=== PATIENT | male | born 1970 | race Caucasian/White ===

== ENCOUNTER → 2017-01-31 | Outpatient (CLI) | payer BC ==
[~2017-01-31] VITALS: Ht 188 cm; Wt 156.6 kg
[~2017-01-31] MED LIST: MULT-506 PO
[2017-01-31 14:59] VITALS: BP 139/85; PULSE 77; Ht 188 cm; Wt 156.6 kg
== END | disposition home or self-care (01) ==
LOC: C.NEUR 13:20
PROVIDERS: ATTEND Physician Assistant
DX: G47.33 Obstructive sleep apnea (adult) (pediatric) (principal)

== ENCOUNTER → 2017-10-21 | Outpatient (CLI) | payer BC ==
--- NOTE | 2017-10-21 17:20 | EXERCISE STRESS ECHO ---
*NOTICE TO RECEIVING DEMOCRAT AGENCY This information is strictly Confidential and protected under [place] law. [place] law prohibits you from making any further disclosure of this information unless further disclosure is expressly permitted by the written consent of the person to whom it pertains or is authorized by law. A general authorization for the release of medical or other information is not sufficient for this purpose. Hospital accepts no responsibility if the information is made available to any other person, INCLUDING THE PATIENT. Interpretation Summary * Name: JACKY TORRES Study Date: 10/21/2017 09:17 AM BP: 140/100 mmHg * Patient Location: [facility] HR: 62 * : 1970 (M/d/yyyy) Gender: Male Height: 74 in * Age: 47 yrs Ethnicity: CA Weight: 358 lb * Ordering Physician: Sj Meraz * Referring Physician: Sj Meraz * Performed By: Rowan Fisher RDCS * * Reason For Study: SOB * BSA: 2.8 m2 * -- Conclusions -- * Stress echo: * 1. Nondiagnostic exercise stress echo as target heart rate was not attained. There were no obvious ischemic changes at 75% MPHR. * 2. Nondiagnostic exercise ECG as target heart rate was not attained. * 3. Hypertensive response to exercise. * 4. No chest pain reported. * 5. Exercise terminated secondary to dyspnea and knee pain. * 6. No arrhythmia. * 7. Technically difficult study, enhanced with IV Definity. * Bicuspid aortic valve without significant stenosis. * Echo: * 1. Mildly dilated left ventricle with normal systolic function. EF 55-60%. No regional wall motion abnormalities. Mild concentric left ventricular hypertrophy. No significant diastolic dysfunction. 2. Bicuspid aortic valve with mild regurgitation. * 3. Technically difficult study. Procedure Details * A contrast injection of Definity was performed to improve assessment of LV function. * Contrast was injected into an intravenous site in the left arm. * One vial of Definity ultrasound contrast was diluted in normal saline to a total volume of 10 ml. A total of '2' ml of solution was administered during imaging. * Lot # [id number] of Definity utilized for procedure. * Expiration date OCT 17. * The attending nurse who injected the contrast agent was ABBI WAN RN. Left Ventricle * The left ventricle is mildly dilated. * There is mild concentric left ventricular hypertrophy. * Ejection Fraction = 55-60%. * Resting wall motion: Normal. Stress wall motion: Appropriate increase in Left ventricular systolic function and decrease in cavity size. No stress induced segmental wall motion abnormalities. * The left ventricular ejection fraction increases normally with stress. The left ventricular end-systolic cavity size reduces post-stress (normal response). The left ventricular wall motion with stress is normal. * No regional wall motion abnormalities noted. Right Ventricle * The right ventricle is not well visualized. * The right ventricular systolic function is normal as assessed by tricuspid annular plane systolic excursion (TAPSE) (normal >1.5 cm). Atria * The left atrial size is normal. * Right atrial size is normal. * There is no evidence of atrial septal defect, but resolution does not allow assessment for a patent foramen ovale. Mitral Valve * The mitral valve leaflets appear normal. There is no evidence of stenosis, fluttering, or prolapse. * There is no mitral valve stenosis. * Significant mitral regurgitation is absent. Tricuspid Valve * The tricuspid valve is not well visualized, but is grossly normal. * There is no tricuspid stenosis. * There is trace tricuspid regurgitation. Aortic Valve * Bicuspid aortic valve without significant stenosis. * Mild aortic regurgitation. Pulmonic Valve * The pulmonary valve is inadequately visualized, but the Doppler data is adequate for interpretation. * Trace pulmonic valvular regurgitation. Great Vessels * The aortic root is normal size. * Aortic arch of normal dimension. Pericardium * There is no pericardial effusion. Stress Parameters * NSR at 69 bpm. * No arrhythmia were noted with stress. * Stress ECG: No ST changes. No arrhythmias. * The stress portion of this study was personally supervised by the undersigned interpreting physician. * Rest heart rate was '62' BPM. * Rest blood pressure was '140/100' * Maximum heart rate achieved was 130 bpm. * Maximum heart rate was 75 % of maximum age-predicted heart rate. * Maximum blood pressure was '211/83' * Total exercise time was '6:00' * Maximum exercise MET level achieved was '7' METS * Maximum treadmill speed was '2.40' miles per hour. * Maximum treadmill elevation was '12'% grade. * Exercise was terminated due to 'dyspnea and knee pain' * Exercise-induced hypertension. MMode 2D Measurements and Calculations IVSd 1.3 cm IVSs 2.1 cm LVIDd 5.4 cm LVIDs 3.9 cm LVPWd 1.2 cm LVPWs 1.7 cm IVS/LVPW 1.0 FS 29.0 % EDV(Teich) 144.0 ml ESV(Teich) 64.6 ml EF(Teich) 55.1 % EDV(cubed) 161.4 ml ESV(cubed) 57.9 ml EF(cubed) 64.1 % % IVS thick 63.6 % % LVPW thick 39.5 % LV mass(C)d 282.2 grams LV mass(C)dI 101.4 grams/m\S\2 LV mass(C)s 324.8 grams LV mass(C)sI 116.7 grams/m\S\2 SV(Teich) 79.4 ml SI(Teich) 28.5 ml/m\S\2 SV(cubed) 103.5 ml SI(cubed) 37.2 ml/m\S\2 Ao root diam 3.7 cm Ao root area 10.6 cm\S\2 LA dimension 3.6 cm LA/Ao 0.99 LVOT diam 2.6 cm LVOT area 5.5 cm\S\2 Doppler Measurements and Calculations MV E max elder 95.4 cm/sec MV A max elder 50.6 cm/sec MV E/A 1.9 MV dec time 0.21 sec Ao V2 max 158.0 cm/sec Ao max PG 10.0 mmHg Ao max PG (full) 8.0 mmHg Ao V2 mean 99.3 cm/sec Ao mean PG 4.7 mmHg Ao mean PG (full) 3.5 mmHg Ao V2 VTI 31.7 cm JIMMY(I,A) 2.8 cm\S\2 JIMMY(I,D) 2.8 cm\S\2 JIMMY(V,A) 2.4 cm\S\2 JIMMY(V,D) 2.4 cm\S\2 LV V1 max PG 2.0 mmHg LV V1 mean PG 1.2 mmHg LV V1 max 70.0 cm/sec LV V1 mean 52.1 cm/sec LV V1 VTI 16.2 cm SV(Ao) 336.0 ml SI(Ao) 120.7 ml/m\S\2 SV(LVOT) 88.1 ml SI(LVOT) 31.7 ml/m\S\2 TR max elder 207.9 cm/sec
== END | disposition home or self-care (01) ==
LOC: C.CPL 09:03
PROVIDERS: ATTEND Internal Medicine
DX: R07.9 Chest pain, unspecified (principal); R94.31 Abnormal electrocardiogram [ECG] [EKG]; I35.1 Nonrheumatic aortic (valve) insufficiency

== ENCOUNTER → 2017-10-21 | Outpatient (CLI) | payer BC ==
[2017-10-21 15:28] LABS: BASO % 0.6 %; BASO ABS # 0.05 K/uL (0-0.2); EOS % 3.5 %; EOS ABS # 0.28 K/uL (0-0.5); HEMATOCRIT 42.2 % (42-52); HEMOGLOBIN 15.3 g/dL (14.0-18.0); IG# 0.02 K/uL (0.00-0.02); LYMPH % 24.4 %; LYMPH ABS # 1.95 K/uL (1.2-3.4); MEAN CELL VOLUME 83.6 fL (80-100); MEAN CORPUSCULAR HEMOGLOBIN 30.3 pg (25-34); MEAN CORPUSCULAR HGB CONC 36.3 g/dl (32-36); MEAN PLATELET VOLUME 9.6 fL (7.4-10.4); MONO ABS # 0.64 K/uL (0.11-0.59); NEUT % 63.2 %; NEUT ABS # 5.04 K/uL (1.4-6.5); PLATELET COUNT 217 K/uL (130-400); RED CELL DISTRIBUTION WIDTH CV 13.3 % (11.5-14.5); RED CELL DISTRIBUTION WIDTH SD 39.4 fL (36.4-46.3); WHITE BLOOD COUNT 7.98 K/uL (4.8-10.8)
[2017-10-21 15:45] LABS: ALBUMIN 3.8 gm/dl (3.4-5.0); ALT/SGPT 42 U/L (12-78); BLOOD UREA NITROGEN 12 mg/dl (7-18); CALCIUM 9.1 mg/dl (8.5-10.1); CARBON DIOXIDE 23 mmol/L (21-32); CREATININE 0.73 mg/dl (0.60-1.40); GLUCOSE 102 mg/dl (70-99); SODIUM 139 mmol/L (136-145)
[2017-10-21 15:48] LABS: ALKALINE PHOSPHATASE 88 U/L (45-117); AST/SGOT 24 U/L (15-37); TOTAL PROTEIN 7.2 gm/dl (6.4-8.2)
[2017-10-22 07:33] LABS: HEMOGLOBIN A1C 5.6 % (4.5-5.6)
== END | disposition home or self-care (01) ==
LOC: C.LABSPEC 14:55
PROVIDERS: ATTEND Internal Medicine
DX: R73.9 Hyperglycemia, unspecified (principal); R78.5 Finding of other psychotropic drug in blood; R06.00 Dyspnea, unspecified

== ENCOUNTER → 2017-10-29 | Outpatient (CLI) | payer BC ==
[~2017-10-29] MED LIST changes: +ASPCH81X PO; +METO25TA56 PO; +OPTIRAY 320 IV PRN
--- NOTE | 2017-10-29 13:01 | DIAGNOSTIC IMAGING REPORT ---
CT CHEST ANGIO WITH CONTRAST CT DOSE: 1052.42 mGy.cm CLINICAL HISTORY: Bicuspid aortic valve. Chest pain. Shortness of breath on exertion. TECHNIQUE: CT angiography of the chest was performed in a dynamic helical fashion during intravenous administration 120 cc of Optiray 320. MIP imaging was obtained. A dose lowering technique was utilized adhering to the principles of ALARA. COMPARISON STUDY: None. FINDINGS: The thyroid is unremarkable in appearance. The heart is at the upper limits of normal in size. No pulmonary artery filling defects are visualized There are no pathologically enlarged axillary, mediastinal, or hilar lymph nodes. There are mild dependent atelectatic changes. There are no pleural effusions. There is no focal pulmonary consolidation. There is a 4 mm left lower lobe pulmonary nodule as visualized in image #[id number]. There is no evidence of thoracic aortic dilatation. There are notable flaps to indicate aortic dissection. IMPRESSION: 1. No evidence of thoracic aortic aneurysm or dissection 2. 4 mm left lower lobe pulmonary nodule. In a high risk patient, a 12 month follow-up is optional Please refer to below summary of Fleischner criteria recommendations for follow-up of incidental CT nodules (Dilip Waterman, Guidelines for management of small pulmonary nodules detected on CT scans: A statement from the Fleischner Society, Radiology 237: [phone].) SOLID NODULES Solitary nodule size: <6 mm * low risk patients: no follow-up needed * high risk patients: optional CT at 12 months Solitary nodule size: 6-8 mm * low risk patients: follow-up at 6-12 months, then consider further follow-up at 18-24 months * high risk patients: initial follow-up CT at 6-12 months and then at 18-24 months if no change Solitary nodule size: >8 mm * either low or high risk patients - consider follow-up CT at 3 months, and/or CT-PET, and/or biopsy Multiple nodules size: <6 mm * low risk patients: no routine follow-up * high risk patients: optional CT at 12 months Multiple nodules size: 6-8 mm * low risk patients: follow-up at 3-6 months, then consider further follow-up at 18-24 months * high risk patients: follow-up at 3-6 months, then at 18-24 months if no change Multiple nodules size: >8 mm * low risk patients: follow-up at 3-6 months, then consider further follow-up at 18-24 months * high risk patients: follow-up at 3-6 months, then at 18-24 months if no change Note: newly detected indeterminate nodule in persons 35 years of age or older. * low risk patients: minimal or absent history of smoking and/or other known risk factors * high risk patients: history of smoking or of other known risk factors (e.g. first degree relative with lung cancer, or exposure to asbestos, radon, uranium) * if a nodule up to 8 mm is partly solid or is ground glass further follow-up is required after 24 months to exclude possible slow growing adenocarcinoma (KATHLEEN) SUBSOLID NODULES Solitary pure ground-glass nodule * nodule size <6 mm - no CT follow-up required * nodule size >=6 mm - follow-up CT at 6-12 months, then every 2 years until 5 years Solitary part-solid nodule * nodule size <6 mm - no CT follow-up required * nodule size >=6 mm - follow-up CT at 3-6 months. If unchanged, and solid component remains <6 mm, then annual follow-up for 5 years Multiple subsolid nodules * nodule size <6 mm - follow-up CT at 3-6 months, consider further follow-up at 2 and 4 years if stable * nodule size >=6 mm - follow-up CT at 3-6 months, subsequent management based on the most suspicious nodule(s) Electronically signed by: Emanuel Coombs M.D. 10/29/2017 1:00 PM Dictated Date/Time: 10/29/2017 12:56 PM
== END | disposition home or self-care (01) ==
LOC: C.CTS 12:13
PROVIDERS: ATTEND Internal Medicine Cardiovascular Disease
DX: Q23.1 Congenital insufficiency of aortic valve (principal); R06.02 Shortness of breath; R07.89 Other chest pain

== ENCOUNTER → 2017-11-03 | Outpatient (CLI) | payer BC ==
[~2017-11-03] MED LIST changes: -OPTIRAY 320 IV PRN
[2017-11-03 14:02] LABS: BLOOD UREA NITROGEN 14 mg/dl (7-18); CARBON DIOXIDE 24 mmol/L (21-32); CREATININE 0.83 mg/dl (0.60-1.40); GLUCOSE 125 mg/dl (70-99); SODIUM 139 mmol/L (136-145)
== END | disposition home or self-care (01) ==
LOC: C.LAB1850 10:45
PROVIDERS: ATTEND Internal Medicine Cardiovascular Disease
DX: Q23.1 Congenital insufficiency of aortic valve (principal); R06.02 Shortness of breath; R07.89 Other chest pain

== ENCOUNTER → 2017-11-06 | Day surgery (SDC) | payer BC ==
[~2017-11-06] VITALS: Ht 188 cm; Wt 159.0 kg
[~2017-11-06] MED LIST changes: +ACETAMINOPHEN 325 MG TAB PO PRN; +FENTANYL CITRATE INJ 50 MCG/1 ML 2 ML VIAL ONE; +HEPARIN SOD (PORCINE) 1000 UNIT/ML 10 ML VIAL ONE; +MIDAZOLAM HCL 1 MG/ML 2ML VIAL ONE; +NITROGLYCERIN/D5W 100MCG/ML 20ML SYR ONE; +NiCARDipine HCL INJ 2.5 MG/ML 10 ML AMP ONE; +ONDANSETRON INJ 2 MG/ML 2 ML VIAL IV PRN; +SODIUM CHLORIDE 0.9% 1000ML 1,000 ML IV SCH; +SODIUM CHLORIDE 0.9% 1000ML 250 ML IV PRN
[2017-11-06 08:40] VITALS: BP 151/88; PULSE 63; TEMP 36.4; O2SAT 95; Ht 188 cm; Wt 159.0 kg
--- NOTE | 2017-11-06 09:53 | History & Physical Bridge Note ---
H&P Re-Evaluation Bridge Note: I have examined the patient, reviewed the History & Physical and in the interval since the performance of the History & Physical I have noted the following changes of clinical significance: No changes noted
--- NOTE | 2017-11-06 09:56 | Pre Sedation Assessment ---
Pre Sedation Assessment General Date of Sedation: Nov 06, 2017. Vital Signs Past 12 Hours Date Time Temp Pulse Resp B/P (MAP) Pulse Ox O2 Delivery O2 Flow Rate FiO2 11/06/17 08:40 36.4 63 16 151/88 (109) 95 Room Air Review Cardiovascular: regular rate, rhythm Lungs: lungs clear Pre-Sedation Airway Assessment Smoking Status: Never Smoker Hx of Sleep Apnea: Yes Short Thick Neck: Yes Oral Cavity: WNL Mallampati Classification: Class III ASA Classification: Class III NPO Status Date of Last Intake of Solids: Nov 05, 2017 Time of Last Intake of Solids: 18:00 Procedure Planning Contraindications for Sedation: None Current Medications Reviewed: Yes Notes The planned sedation has been discussed with the patient. Informed Consent was obtained. I have identified the patient, determined the appropriateness of sedation and have assessed the patient immediately prior to the procedure. All medicine(s) and interventions are by my order.
--- NOTE | 2017-11-06 10:42 | Cardiac Catheterization ---
Procedure Note Procedure Date Nov 06, 2017. Pre-Procedure Diagnosis Cardiothoracic Symptom (Dyspnea on exertion and atypical chest pain. Nondiagnostic stress echo.) AUC Score 7 Post-Procedure Diagnosis Normal Coronary Arteries, Normal Intracardiac Pressures Procedure(s) Performed Coronary Angiography, Left Heart Cath Pediatric Cardiologist Dr. Merritt Matching Machine Operator(s) Judith Estimated Blood Loss < 20 ml Medication(s) Fentanyl, Heparin, Nicardipine, Versed, Lidocaine 1% Summary of Findings Coronary angiography: 1. Left main coronary artery: The LMCA is large in caliber. No CAD. 2. Left anterior descending: The LAD is a large caliber vessel that extends to the apex. There is a small caliber D1 and a large caliber D2. No significant CAD within the LAD system. 3. Circumflex: Circumflex is a large caliber vessel which gives rise to a very large high OM1 with lateral branch, and a medium caliber OM2. No CAD noted within the circumflex system. 4. Right coronary artery: The RCA is a large and dominant vessel. It gives rise to a large PL branch and large PDA. No CAD noted within the RCA system. Left heart catheterization: 1. Left ventriculography was not performed as patient had recent echocardiogram. 2. No significant aortic stenosis. Peak to peak transvalvular gradient 0mmHg. 3. Normal LVEDP; 8 mmHg. Sedation start time: 10:04 a.m. Sedation end time: 10:25 a.m. Procedural details: 1. Coronary angiography and left heart catheterization was performed via the right radial artery without known complication. JL 3.5 and JR4 diagnostic catheters were used. Impression: 1. No CAD. 2. No significant aortic stenosis. 3. Normal LVEDP. Plan: 1. Continue to follow-up for surveillance regarding bicuspid aortic valve. Hemodynamics Rest Ao: 104/63 Final Ao: 101/63 LV: 106/0/8 Recommendations Medical therapy and/or Counseling Specimens Radiation Exposure (mGy) 1687 mGy. Fluoro time 5.9 min Contrast (mls) 70 Procedural Complication(s) None Disposition Nutritional Services Host Holding/Recovery ACC Data Cardiac Status Clinical evaluation leading to the procedure CAD Presntation: No Sxs, no angina (atypical chest pain and dyspnea on exertion ) Anginal Classification: CCS III Heart Failure: No Cardiogenic Shock w/in 24Hrs: No Cardiac Arrest w/in 24Hrs: No Imaging studies past 6 months: No Stress studies past 6 months: Yes Standard Exercise Stress Test: Yes - Indeterminant (TARGET HR NOT ATTAINED) Stress Echocardiogram: Yes - Indeterminant (NONDIAGNOSTIC) Stress Testing w/SPECT MPI: No Cardiac CTA: No Coronary Anatomy Dominant: Right Left Main (% Stenosis): Normal LAD (% Stenosis): Normal D1 (% Stenosis): Normal D2 (% Stenosis): Normal Circumflex (% Stenosis): Normal OM1 (% Stenosis): Normal OM2 (% Stenosis): Normal RCA (% Stenosis): Normal R PDA (% Stenosis): Normal R PL1 (% Stenosis): Normal Left Ventricular Angiography EF (%): n/a Diagnostic Physician's Name: Zac Merritt MD Status: Elective Closure Device Percutaneous Entry Location: Radial Closure Device: Radial Band Recommendations: Medical therapy and/or Counseling
--- NOTE | 2017-11-06 10:58 | Discharge Instructions ---
Discharge Instructions Date of Service Nov 06, 2017. Visit Reason for Visit: Shortness of breath and atypical chest pain. Here for heart catheterization. Discharge Discharge Diagnosis / Problem: No coronary artery disease Discharge Goals Goal(s): Diagnostic testing Medications Restart Stopped Medication(s): resume usual medications Activity Recommendations Activity Limitations: per Instructions/Follow-up section Anesthesia . Post Anesthesia Instructions: If you have had General Anesthesia or IV Sedation: * Do not drive today. * Resume driving when surgeon permits. * Do not make important decisions or sign legal documents today. * Call surgeon for: 1. Temperature elevations greater than 101 degrees F. 2. Uncontrollable pain. 3. Excessive bleeding. 4. Persistent nausea and vomiting. 5. Medication intolerance (nausea, vomiting or rash). * For nausea and vomiting use only clear liquids such as: tea, soda, bouillon until nausea subsides, then gradually increase diet as tolerated. * If you have any concerns or questions, call your surgeon's office. If physician is unavailable and it is an emergency, call 911 or go to the nearest emergency room. . Instructions / Follow-Up Instructions / Follow-Up Follow Up: 1. Follow up with Dr. Rhodes ACTIVITY RECOMMENDATIONS: Excess manipulation of the wrist should be avoided for the next 24-48 hours. * No lifting over 2 pounds (approximately a 1/2 gallon of milk) with the utilized arm for 24 hours. * No strenuous activity such as bowling or tennis for 3 days. * Keep the site of the procedure covered with a bandage for 24 hours. *You may shower the day after the procedure. Do not take a tub bath or submerge the puncture site in water for the next 3 days. *Do not operate any motorized equipment for 3 days. SPECIAL CARE INSTRUCTIONS: The site may be slightly bruised and sore following your procedure. Should any of the following occur, contact the DrLuther who performed your procedure. 1. Redness/inflammation, swelling, chills, or fever, or colored drainage at procedure site within 3-7 days after your procedure. 2. Coldness, discoloration, ongoing numbness, severe pain, or swelling. Expect mild tingling of hand and tenderness at the puncture site for up to three days. If this persists beyond three days, or other symptoms develop, notify the DrLuther who performed your procedure. BLEEDING: If the procedure site on your wrist begins to bleed, do not panic 1. Place 1 or 2 fingers firmly just slightly above the insertion site to stop the bleeding. You may be able to feel your pulse as you hold pressure. 2. Lift your finger after 5 minutes to see if the bleeding has stopped. 3. Once the bleeding has stopped, gently wipe the wrist area clean with a bandage. * If the bleeding from your wrist does not stop after 10 minutes, or if there is a large amount of bleeding or spurting, call 911 ([address] drive yourself to the hospital). SKIN IRRITATION: * You may experience some redness and/or swelling in the area where radiation was administered. If any skin irritation occurs, please contact your family physician. FOLLOW UP VISIT: Keep any scheduled doctor appointments. Diet Recommendations Recommended Home Diet: resume previous diet Procedures Procedures Performed: 1. Coronary angiography 2. Left heart cath Pending Studies Studies pending at discharge: no Medical Emergencies . Who to Call and When: Medical Emergencies: If at any time you feel your situation is an emergency, please call 911 immediately. . Non-Emergent Contact Non-Emergency issues call your: Primary Care Provider, Wardrobe Coordinator . . "Provider Documentation" section prepared by Zac Francisco. .
[2017-11-06 12:30] VITALS: BP 127/70; PULSE 60; O2SAT 98
--- NOTE | 2017-11-06 14:04 | Post Sedation Assessment ---
Post Sedation Assessment General Date of Sedation Nov 06, 2017. Vital Signs: Vital Signs Past 12 Hours Date Time Temp Pulse Resp B/P (MAP) Pulse Ox O2 Delivery O2 Flow Rate FiO2 11/06/17 12:30 60 16 127/70 (89) 98 Room Air 11/06/17 12:15 58 16 126/70 (88) 98 Room Air 11/06/17 12:00 60 16 128/76 (93) 98 Room Air 11/06/17 11:45 58 16 127/75 (92) 98 Room Air 11/06/17 11:30 60 16 127/70 (89) 98 Room Air 11/06/17 11:15 59 16 127/77 (94) 98 Room Air 11/06/17 11:00 55 16 127/78 (94) 98 Room Air 11/06/17 10:45 57 16 130/76 (94) 98 Room Air 11/06/17 10:30 54 16 140/82 (101) 98 Room Air 11/06/17 10:25 68 16 138/80 (99) 98 Room Air 11/06/17 08:40 36.4 63 16 151/88 (109) 95 Room Air Post Procedure Recovery Score Activity: (2) Moves 4 extremities * Respiration: (2) Deep breath/cough Circulation: (2) +/-20% PreAnes Value Consciousness: (2) Fully Awake Oxygen Saturation: (2) > 92% On Room Air Post Anesthesia Score: 10 Discharge Sedation Level of Care: Fast Track Phase II Post Sedation Plan On clinical assessment, the patient appears to have tolerated the sedation without complications. Patient is recovering as anticipated. Patient will continue to be monitored by nursing and may be discharged when sedation discharge criteria are met per below protocol. Upon Completions of procedure and additional 15 minutes continue every 5 minute vital signs and the P.A.R. score; then discharge to a Phase I or Fast Track to Phase II per the following guidelines: * Discharge Patient to appropriate Phase II area if PAR is 8 or greater or return to pre- procedure baseline. The post - procedure orders will be as directed. * If PAR score is less than 8 or not return to pre-procedure baseline then patient will follow Phase I monitoring till PAR is reached for Phase II. The Phase I may be done in procedure room or may call to secure a Phase I area. * If naloxone or flumazenil are used for reversal, hold in Phase I for an additional 60 -120 minutes before discharge to Phase II. Please call the Sedation Physician to re-evaluate and complete post-note for discharge to Phase II area. Do NOT discharge from procedure sedation or Phase 1 until post- sedation evaluation note is complete by procedure /sedation MD Sedation Discharge Instructions to be given to the patient at discharge to home.
== END | disposition home or self-care (01) ==
LOC: C.CATH 08:15
PROVIDERS: ATTEND Internal Medicine Cardiovascular Disease
DX: R07.89 Other chest pain (principal); R06.02 Shortness of breath; Q23.1 Congenital insufficiency of aortic valve; R00.2 Palpitations; E78.5 Hyperlipidemia, unspecified; E66.01 Morbid (severe) obesity due to excess calories; G47.33 Obstructive sleep apnea (adult) (pediatric); Z82.49 Family history of ischemic heart disease and other diseases of the circulatory system; Z79.82 Long term (current) use of aspirin

== ENCOUNTER → 2018-02-12 | Outpatient (CLI) | payer BC ==
[~2018-02-12] VITALS: Ht 188 cm; Wt 159.7 kg
[~2018-02-12] MED LIST changes: -ACETAMINOPHEN 325 MG TAB PO PRN; -FENTANYL CITRATE INJ 50 MCG/1 ML 2 ML VIAL ONE; -HEPARIN SOD (PORCINE) 1000 UNIT/ML 10 ML VIAL ONE; -MIDAZOLAM HCL 1 MG/ML 2ML VIAL ONE; -NITROGLYCERIN/D5W 100MCG/ML 20ML SYR ONE; -NiCARDipine HCL INJ 2.5 MG/ML 10 ML AMP ONE; -ONDANSETRON INJ 2 MG/ML 2 ML VIAL IV PRN; -SODIUM CHLORIDE 0.9% 1000ML 1,000 ML IV SCH; -SODIUM CHLORIDE 0.9% 1000ML 250 ML IV PRN
[2018-02-12 14:59] VITALS: BP 148/85; PULSE 78; Ht 188 cm; Wt 159.7 kg
== END | disposition home or self-care (01) ==
LOC: C.NEUR 13:54
PROVIDERS: ATTEND Physician Assistant
DX: G47.33 Obstructive sleep apnea (adult) (pediatric) (principal)